=== PATIENT | female | born 1985 | race Caucasian/White ===

== ENCOUNTER → 2017-10-13 | Outpatient (REF) | payer OTHER ==
[2017-10-13 19:42] LABS: BASO % 0.5 % (0.0-1.0); EOS # 0.1 10^3/uL (0.0-0.50); EOS % 1.7 % (0.0-3.0); HEMATOCRIT 40.9 % (36.0-47.0); HEMOGLOBIN 14.2 g/dl (12.0-16.0); IMMATURE GRANULOCYTE % 0.2 % (0-0); LYMPH # 2.6 10^3/uL (1.5-4.5); LYMPH % 39.7 % (24.0-44.0); MEAN CORPUSCULAR HEMOGLOBIN 29.8 pg (27.0-33.0); MEAN CORPUSCULAR HGB CONC 34.7 g/dl (32.0-36.5); MEAN CORPUSCULAR VOLUME 85.9 fl (80.0-96.0); MONO # 0.4 10^3/uL (0.0-0.8); MONO % 6.1 % (0.0-5.0); NEUTROPHILS # 3.3 10^3/uL (1.8-7.7); NEUTROPHILS % 51.8 % (36.0-66.0); PLATELET COUNT, AUTOMATED 341 10^3/uL (150-450); RED BLOOD COUNT 4.76 10^6/uL (4.00-5.40); RED CELL DISTRIBUTION WIDTH 12.1 % (11.5-14.5); WHITE BLOOD COUNT 6.4 10^3/uL (4.0-10.0)
[2017-10-13 20:26] LABS: ERYTHROCYTE SEDIMENTATION RATE 6 mm/hr (0-20)
[2017-10-13 21:22] LABS: FOLATE > 24.0 NG/ML; VITAMIN B12 LEVEL 1034 PG/ML
[2017-10-13 21:30] LABS: ALBUMIN 4.3 GM/DL (3.2-5.2); ALBUMIN/GLOBULIN RATIO 1.43 (1.00-1.93); ALKALINE PHOSPHATASE 119 U/L (45-117); ALT/SGPT 33 U/L (12-78); ANION GAP 9 MEQ/L (8-16); AST/SGOT 21 U/L (7-37); BILIRUBIN,TOTAL 0.4 MG/DL (0.2-1.0); BLOOD UREA NITROGEN 13 MG/DL (7-18); CALCIUM LEVEL 9.3 MG/DL (8.5-10.1); CARBON DIOXIDE LEVEL 25 MEQ/L (21-32); CHLORIDE LEVEL 105 MEQ/L (98-107); CREATININE FOR GFR 0.69 MG/DL (0.55-1.02); GLOMERULAR FILTRATION RATE > 60.0 (>60); GLUCOSE, FASTING 83 MG/DL (70-105); POTASSIUM SERUM 3.9 MEQ/L (3.5-5.1); RHEUMATOID FACTOR QUANT < 10.0 IU/ML (0-15.0); SODIUM LEVEL 139 MEQ/L (136-145); TOTAL PROTEIN 7.3 GM/DL (6.4-8.2)
[2017-10-13 21:31] LABS: ESTIMATED AVERAGE GLUCOSE 94 MG/DL (60-110); HEMOGLOBIN A1c 4.9 %
[2017-10-14 11:09] LABS: DRVV SCREEN 38.4 SEC
[2017-10-14 11:19] LABS: PTT LUPUS TYPE ANTICOAG SCREEN 0.9 (0-1.2)
[2017-10-17 10:55] LABS: ALBUMIN 4.47 GM/DL (3.29-5.55); ALBUMIN % 61.3 % (55.8-66.1); ALPHA-1-GLOBULIN % 4.1 % (2.9-4.9); ALPHA-2-GLOBULINS 0.72 GM/DL (0.42-0.99); ALPHA-2-GLOBULINS % 9.9 % (7.1-11.8); BETA-1-GLOBULINS % 6.8 % (4.7-7.2); BETA-2-GLOBULINS % 5.2 % (3.2-6.5); GAMMA GLOBULIN % 12.7 % (11.1-18.8)
[2017-10-17 10:56] LABS: BETA-2-GLOBULINS 0.38 GM/DL (0.19-0.55); GAMMA GLOBULINS 0.93 GM/DL (0.65-1.58)
== END ==
LOC: M LABNEURO 16:56
DX: G60.9 Hereditary and idiopathic neuropathy, unspecified (principal); R51 Headache

== ENCOUNTER → 2017-11-14 | Outpatient (REF) | payer OTHER | LOC: M LAB REF 15:06 | DX: J02.9 Acute pharyngitis, unspecified (principal) ==